=== PATIENT | male | born 1980 | race Caucasian/White ===

== ENCOUNTER 2025-04-11 10:01 | Outpatient (CLI) | payer OTHER | END 2025-04-11 10:02 | disposition home or self-care (01) | LOC: BICRAD 10:01 | PROVIDERS: ATTEND Family Medicine | DX: R07.9 Chest pain, unspecified (principal) | CPT/HCPCS: 71046 ==

== ENCOUNTER 2025-05-03 10:30 | Outpatient (CLI) | payer OTHER | END 2025-05-03 10:31 | disposition home or self-care (01) | LOC: BICRAD 10:30 → RAD 10:31 | PROVIDERS: ATTEND Family Medicine | DX: M54.50 Low back pain, unspecified (principal); M19.90 Unspecified osteoarthritis, unspecified site | CPT/HCPCS: 72072 ==